=== PATIENT | male | born 1995 | race Caucasian/White ===

== ENCOUNTER 2020-09-13 07:45 | Outpatient (RCR) | payer OTHER, BC, SELFPAY ==
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
--- NOTE | 2020-11-07 08:51 | PTOPEVAL ---
Thank you for referring Frank Johns to [facility].? The patient is scheduled to be seen for therapy? _2___x/week for 8 visits. Please review, sign, date and return this plan of care BURTON. I agree with and certify that the following plan of care is medically necessary. Referring Physician Date Admitting Provider: Attending Provider: PHYSICIAN NOT ON STAFF Referring Provider: *PT Outpatient Evaluation Start: 09/13/20 07:08 Freq: Status: Active Protocol: Document 11/07/20 07:10 MATTHEW (Rec: 11/07/20 08:38 [email or web address] [email or web address]) Therapy Assessment Status Assessment Status Assessment Status Re-evaluation Evaluation Information Problem Diagnosis right distal tibia fx Onset 07/15/20 Pain Assessment Pain Scale Pain Scale Used Numeric (1 - 10) Self Report Pain Assessment Right Ankle(s) Reported Pain Level 1 Pain Score Pain Score 1: Self Report Interventions Used Interventions Used By Clinicians Activity or ADL's,Exercise Lower Extremity Range of Motion General Lower Extremity Range of Motion Gross Lower Extremity Range of Motion -right ankle DF 0 degrees Comments -right ankle PF 52 degrees -right ankle eversion 10 degrees -right ankle inversion 25 degrees Lower Extremity Muscle Strength Testing General Lower Extremity Strength Gross Lower Extremity Strength -Pt. continues to have difficulty maintaining SLS on the right and cannot maintain without handhold support Gait Assessment Gait Assessment Additional Ambulation Comments Pt. ambulates over level surface without a walking boot demonstrating difficulty during terminal stance compensating with knee hyperextension due to lack of adequate DF of the ankle. Stair Climbing Assessment Stair Climbing Assessment Stair Climbing Comments Pt. continues stair navigation with step to pattern due to inability to properly descend on the right l.e. due to lack of adequate dorsiflexion General Exercise General Exercises Exercise Description -passive stretching to the Query Text:Record Sets, Reps, right ankle dorsiflexion and Resistance, and Position plantarflexion x 8 minutes -modified SLS x 2 sets x 1 minute right -heel raises on nautilus with
--- NOTE | 2020-11-23 07:43 | PCPTNOTE ---
11/23/20 Mr. Johns has completed 17 skilled PT visits as of this date. During this time, he has been working on AROM, PROM, strength, ambulation, balance, and functional activity performance. He presents this date achieving AROM values as listed below: R ankle AROM DF = 3 degrees, PF = 50 degrees, Inversion = 25 degrees, Eversion = 10 degrees. Patient ambulates with continued noted decreased DF during ambulation affecting his terminal stance mostly. However, he does ambulate with improved stride/step length bilaterally since his last re-evaluation. Thank you for allowing our facility to be involved in this patients care. If you have any further questions please feel free to follow up with our staff at [phone] Sincerely, Frank Baxter DPT
--- NOTE | 2020-12-06 12:49 | PTOPEVAL ---
Thank you for referring Frank Johns to [facility].? The patient is scheduled to be seen for therapy? ___1_x/week for 4 visits. Please review, sign, date and return this plan of care B[place]TON. I agree with and certify that the following plan of care is medically necessary. Referring Physician Date Admitting Provider: Attending Provider: PHYSICIAN NOT ON STAFF Referring Provider: *PT Outpatient Evaluation Start: 09/13/20 07:08 Freq: Status: Active Protocol: Document 12/06/20 06:57 MATTHEW (Rec: 12/06/20 08:32 MATTHEW [email or web address]) Therapy Assessment Status Assessment Status Assessment Status Progress Evaluation Information Problem Diagnosis right distal tibia fx Subjective Information Pt. reports that he has mild Query Text:As Reported By Patient/ pain with ambulation. Pt. Family continues to note stiffness of the ankle. He states that he has not yet return to work related duties. Pain Assessment Pain Scale Pain Scale Used Numeric (1 - 10) Self Report Pain Assessment Right Ankle(s) Reported Pain Level 1 Pain Score Pain Score 1: Self Report Interventions Used Interventions Used By Clinicians Activity or ADL's,Exercise Lower Extremity Range of Motion General Lower Extremity Range of Motion Gross Lower Extremity Range of Motion right ankle dorsiflexion 3 Comments degrees right ankle plantarflexion 53 degrees Lower Extremity Muscle Strength Testing General Lower Extremity Strength Gross Lower Extremity Strength Assess pt. ability to perform single limb heel raises. Note no difficulty completing 10 reps on the left with excellent movement quality. Pt. completes 5 reps on the right with impaired movement quality compared to the left. Posture Posture Sitting Position Additional Posture Comments Pt. continues to present with a hammertoe deformity at the 1st-4th digits of the right foot. Gait Assessment Gait Assessment Additional Ambulation Comments Pt. continues to ambulate without an AD demonstrating improved right stance time, however still note genu recurvatum during right stance phase due to lack of adequate ankle dorsiflexion on the
== END 2020-12-18 23:59 | disposition home or self-care (01) ==
LOC: CHSPT 07:45
DX: M25.571 Pain in right ankle and joints of right foot (principal)
CPT/HCPCS: 97110; 97116; 97161; 97530

== ENCOUNTER 2020-12-25 15:28 | Outpatient (RCR) | payer BC, OTHER, SELFPAY | END 2021-01-01 09:31 | disposition home or self-care (01) | LOC: CHSPT 15:28 | DX: Z47.89 Encounter for other orthopedic aftercare (principal) | CPT/HCPCS: 97110 ==